=== PATIENT | female | born 1945 | race Caucasian/White ===

== ENCOUNTER → 2016-11-04 | Outpatient (CLI) | payer OTHER, MEDICARE | LOC: FCPNEURO 21:00 | PROVIDERS: ATTEND Internal Medicine Sleep Medicine | DX: G47.33 Obstructive sleep apnea (adult) (pediatric) (principal); G47.61 Periodic limb movement disorder ==

== ENCOUNTER → 2017-03-09 | Outpatient (CLI) | payer OTHER, MEDICARE | LOC: FIMAGING 10:13 | PROVIDERS: ATTEND Family Medicine | DX: Z13.820 Encounter for screening for osteoporosis (principal); M85.80 Other specified disorders of bone density and structure, unspecified site; Z78.0 Asymptomatic menopausal state; Z82.62 Family history of osteoporosis ==